=== PATIENT | male | born 1975 | race Caucasian/White ===

== ENCOUNTER 2017-03-19 03:17 | Emergency (ER) | payer OTHER ==
[~2017-03-19] VITALS: Ht 177.8 cm; Wt 68.0 kg
[~2017-03-19 03:17] MED LIST: ALBU90OI INH; ALBU90OI61 INH; AMOX875 PO; BENZ100A PO; BUPR150ER PO; CODGUAEL PO; Lotrimin Ultra12 GM TP; OMEP20ER PO; Prednisone20 MG PO; QVAR7.3 G1 INH; Ultram50 MG PO; Zithromax250 MG PO
[2017-03-19] MEDS ORDERED: CYCL10 PO (03:32)
[2017-03-19] MEDS ORDERED: Percocet 5-3251 EACH PO (05:15)
[2017-03-19] MEDS ORDERED: METPRE4DP PO (05:15)
== END 2017-03-19 05:26 | disposition home or self-care (01) ==
LOC: ER 03:17
DX: M25.512 Pain in left shoulder (principal); F17.200 Nicotine dependence, unspecified, uncomplicated
CPT/HCPCS: 73030; 93005; 93010; 96372; 99283; J1885

== ENCOUNTER 2017-05-06 17:17 | Emergency (ER) | payer OTHER ==
[~2017-05-06] VITALS: Ht 175.3 cm; Wt 72.6 kg
[~2017-05-06 17:17] MED LIST changes: +CYCL10 PO; +METPRE4DP PO; +Percocet 5-3251 EACH PO
[2017-05-06] MEDS ORDERED: Robaxin500 MG PO (18:27)
[2017-05-06] MEDS ORDERED: IBUP800 PO (18:27)
[2017-05-06] MEDS ORDERED: Ultram50 MG PO (18:31)
== END 2017-05-06 18:40 | disposition home or self-care (01) ==
LOC: ER 17:17
DX: M25.512 Pain in left shoulder (principal); F17.210 Nicotine dependence, cigarettes, uncomplicated
CPT/HCPCS: 96372; 99283; J1885